=== PATIENT | female | born 1955 | race Caucasian/White ===

== ENCOUNTER → 2016-09-29 | Outpatient (CLI) | payer MEDICAID ==
[~2016-09-29] MED LIST: ACTOPLUS MET 501 TAB PO; CIPRO 500MG TA500 MG PO; CLARITIN 1010 MG/TAB PO; DETROL LA2 PO; DETROL LA4 PO; FLONASE NASAL S16 GM NS; METFORMIN500 MG PO; NO HOME MEDICATIONS; PRINZIDE 25 MG-1 TAB PO; PROTONIX40 MG PO; PYRIDIUM200 M1 PO; UNABLE; VITAMIN D31000 IU PO; VITAMIN D32000 IU PO
== END ==
LOC: MC.RAD 11:14
DX: Z12.31 Encounter for screening mammogram for malignant neoplasm of breast (principal)

== ENCOUNTER → 2017-03-30 | Outpatient (CLI) | payer MEDICAID | LOC: MC.RAD 09:45 | DX: Z12.31 Encounter for screening mammogram for malignant neoplasm of breast (principal) ==

== ENCOUNTER 2024-01-08 21:22 | Emergency (ER) | payer MEDICARE, MEDICAID ==
[~2024-01-08] VITALS: Ht 157.5 cm; Wt 61.4 kg
[2024-01-08 21:24] VITALS: TEMP 101.1
[2024-01-08] MEDS ORDERED: NS 1,000 ML IV ONE (21:45)
[2024-01-08 22:01] LABS: HEMATOCRIT 39.2 % (37.0-47.0); HEMOGLOBIN 13.9 g/dl (12.5-16.0); MEAN CELL VOLUME 97 fl (80.0-100.0); MEAN CORPUSCULAR HEMOGLOBIN 34 pg (27-31); MEAN CORPUSCULAR HGB CONC 36 g/dl (33.0-37.0); MEAN PLATELET VOLUME 10.6 fl (7.4-10.4); PLATELET COUNT 106 K/mm3 (130-400); RED BLOOD COUNT 4.04 M/mm3 (4.10-5.30); REDCELL DISTRIBUTION WIDTH-CV 12.1 % (11.5-14.5)
[2024-01-08 22:21] LABS: ALBUMIN 3.2 g/dL (3.4-4.8); BILIRUBIN,TOTAL 2.9 mg/dL (0.2-1.2); CALCIUM 8.8 mg/dL (8.4-10.2); CREATININE, serum 0.89 mg/dL (0.57-1.11); POTASSIUM 3.3 mEq/L (3.5-4.5); TOTAL PROTEIN 6.3 g/dl (6.2-8.1)
[2024-01-08 22:27] LABS: TROPONIN-I 0.01 ng/mL (0.00-0.033)
[2024-01-08 22:35] LABS: BAND 6 % (0-10); LYMPHOCYTE 7 % (20.0-51.0); NEUTROPHILS 84 % (42.0-75.2)
[2024-01-08 22:36] LABS: PLATELET ESTIMATE NORMAL (NORMAL)
[2024-01-08 23:16] LABS: COLLECTION METHOD CLEAN CATCH
[2024-01-08 23:25] LABS: PH 5.5 (5.0-8.5); URINE APPEARANCE CLEAR (CLEAR/HAZY); URINE BLOOD NEGATIVE (NEGATIVE); URINE COLOR Dark Yellow (YELLOW); URINE GLUCOSE 3+ (NEGATIVE); URINE KETONE 2+ (NEGATIVE); URINE NITRATE NEGATIVE (NEGATIVE); URINE PROTEIN(semi-quant) TRACE (NEGATIVE)
[2024-01-08] MEDS ORDERED: Iohexol 300 - 100 ML VIAL IV ONE (23:45)
[2024-01-08] MEDS ORDERED: NS 50 ML IV SCH (23:46)
[2024-01-09 01:22] VITALS: BP 142/78; PULSE 64
== END 2024-01-09 01:24 | disposition home or self-care (01) ==
LOC: COL.ER 21:22
PROVIDERS: Physician Assistant
DX: E86.0 Dehydration (principal); R74.01 Elevation of levels of liver transaminase levels
CPT/HCPCS: J7030; Q9967